=== PATIENT | female | born 1970 | race Caucasian/White ===

== ENCOUNTER 2016-09-30 21:06 | Emergency (ER) | payer OTHER ==
[~2016-09-30] VITALS: Ht 170.2 cm; Wt 85.3 kg
[2016-09-30 21:20] VITALS: BP 132/80; PULSE 58; RESP 16; TEMP 98.4; O2SAT 96
[2016-09-30] MEDS ORDERED: NACL 0.9% 1,000 ML IV ONE (21:37)
[2016-09-30] MEDS ORDERED: MORPHINE 4 MG/ML INJ. SYRINGE IVP ONE ×3 (21:45→23:45)
[2016-09-30] MEDS ORDERED: DIPHENHYDRAMINE INJ 50 MG/ML VIAL IVP ONE ×3 (21:45→23:45)
[2016-09-30] MEDS ORDERED: ONDANSETRON HCL 4 MG/2 ML VIAL IVP ONE (21:45)
[2016-09-30 21:57] LABS: BASOPHILS % (AUTO) 0.4 % (0.0-2.0); EOSINOPHILS # (AUTO) 0.1 K/uL (0.0-0.4); EOSINOPHILS % (AUTO) 1.4 % (0.0-4.0); HEMOGLOBIN 12.6 g/dL (12.0-16.0); LYMPHOCYTES # (AUTO) 2.8 K/uL (1.0-5.5); LYMPHOCYTES % (AUTO) 35.4 % (20.5-51.5); MEAN CORPUSCULAR HEMOGLOBIN 31 pg (27-31); MEAN CORPUSCULAR HGB CONC 34 % (32-36); MEAN CORPUSCULAR VOLUME 90 fL (79.0-98.0); MONOCYTES # (AUTO) 0.3 K/uL (0.0-1.0); MONOCYTES % (AUTO) 4.3 % (1.7-9.3); NEUTROPHILS # (AUTO) 4.7 K/uL (1.8-7.7); NEUTROPHILS % (AUTO) 58.5 % (40.0-70.0); PLATELET COUNT (AUTO) 315 K/uL (130-430); RED BLOOD CELL COUNT(AUTO) 4.12 MIL/uL (4.2-6.2); RED CELL DISTRIBUTION WIDTH 13.9 % (9.0-15.0); WHITE BLOOD COUNT (AUTO) 7.9 K/uL (4.8-10.8)
[2016-09-30 22:14] LABS: PROTHROMBIN TIME 11.2 SECS (9.5-12.5)
[2016-09-30 22:25] LABS: CREATININE 0.9 mg/dL (0.55-1.30); POTASSIUM 3.6 mmol/L (3.5-5.1)
[2016-09-30 22:29] LABS: ALBUMIN 3.7 g/dL (3.4-4.8); TOTAL BILIRUBIN 0.6 mg/dL (0.0-1.0); TOTAL PROTEIN, SERUM 8.2 g/dL (6.4-8.3)
[2016-10-01 00:43] LABS: BILIRUBIN,URINE NEGATIVE (NEGATIVE); BLOOD, URINE NEGATIVE (NEGATIVE); CLARITY/URINE CLEAR (CLEAR); COLOR,URINE YELLOW (YELLOW); GLUCOSE,URINE NEGATIVE (NEGATIVE); KETONES,URINE NEGATIVE (NEGATIVE); LEUKOCYTE ESTERASE ,URINE NEGATIVE (NEGATIVE); NITRITE, URINE NEGATIVE (NEGATIVE); PH,URINE 5.5 (5.0-8.0); PROTEIN URINE NEGATIVE (NEGATIVE); UROBILINOGEN,URINE 0.2 (0.2-1.0)
[2016-10-01 01:09] VITALS: BP 131/86; PULSE 65; RESP 14; TEMP 97.6; O2SAT 97
== END 2016-10-01 01:09 | disposition short-term general hospital (02) ==
LOC: SED 21:06
DX: K85.90 Acute pancreatitis without necrosis or infection, unspecified (principal); Z87.19 Personal history of other diseases of the digestive system
CPT/HCPCS: 36415; 80053; 81003; 83690; 85025; 85610; 85730; 96361; 96374; 96375; 96376; 99285; J1200; J2270; J2405; J7030

== ENCOUNTER 2017-05-08 15:51 | Emergency (ER) | payer OTHER ==
[~2017-05-08] VITALS: Ht 170.2 cm; Wt 85.7 kg
[2017-05-08 16:02] VITALS: BP_SYST 117
[2017-05-08] MEDS ORDERED: ONDANSETRON HCL 4 MG/2 ML VIAL IVP ONE ×2 (16:45→18:45)
[2017-05-08] MEDS ORDERED: NACL 0.9% 1,000 ML IV ONE (16:45)
[2017-05-08] MEDS ORDERED: HYDROmorphone 1 MG INJ. 1 MG/ML AMPUL IVP ONE (16:45)
[2017-05-08 17:01] LABS: BILIRUBIN,URINE NEGATIVE (NEGATIVE); BLOOD, URINE TRACE (NEGATIVE); CLARITY/URINE SL HAZY (CLEAR); COLOR,URINE YELLOW (YELLOW); GLUCOSE,URINE NEGATIVE (NEGATIVE); KETONES,URINE NEGATIVE (NEGATIVE); LEUKOCYTE ESTERASE ,URINE NEGATIVE (NEGATIVE); NITRITE, URINE NEGATIVE (NEGATIVE); PROTEIN URINE NEGATIVE (NEGATIVE); UROBILINOGEN,URINE 0.2 (0.2-1.0)
[2017-05-08 17:08] LABS: BASOPHILS # (AUTO) 0.1 K/uL (0.0-0.2); BASOPHILS % (AUTO) 1.2 % (0.0-2.0); EOSINOPHILS % (AUTO) 0.3 % (0.0-4.0); HEMATOCRIT 39.1 % (36-48); HEMOGLOBIN 13.1 g/dL (12.0-16.0); LYMPHOCYTES # (AUTO) 1.7 K/uL (1.0-5.5); LYMPHOCYTES % (AUTO) 24.9 % (20.5-51.5); MEAN CORPUSCULAR HEMOGLOBIN 32 pg (27-31); MEAN CORPUSCULAR HGB CONC 33 % (32-36); MEAN CORPUSCULAR VOLUME 94 fL (79.0-98.0); MONOCYTES # (AUTO) 0.3 K/uL (0.0-1.0); MONOCYTES % (AUTO) 4.7 % (1.7-9.3); NEUTROPHILS # (AUTO) 4.8 K/uL (1.8-7.7); NEUTROPHILS % (AUTO) 68.9 % (40.0-70.0); PLATELET COUNT (AUTO) 323 K/uL (130-430); RED BLOOD CELL COUNT(AUTO) 4.14 MIL/uL (4.2-6.2); RED CELL DISTRIBUTION WIDTH 11.8 % (9.0-15.0); WHITE BLOOD COUNT (AUTO) 6.9 K/uL (4.8-10.8)
[2017-05-08 17:13] LABS: BACTERIA,URINE FEW /HPF (None Seen); MUCUS,URINE 3+ /LPF (None Seen); RBC,URINE 0-3 /HPF (0-3); WBC,URINE 0-3 /HPF (0-3)
[2017-05-08 17:26] LABS: CALCIUM 8.8 mg/dL (8.4-11.0); CREATININE 0.64 mg/dL (0.55-1.30); POTASSIUM 3.6 mmol/L (3.5-5.1)
[2017-05-08 17:30] LABS: ALBUMIN 3.5 g/dL (3.4-4.8); TOTAL BILIRUBIN 0.7 mg/dL (0.0-1.0)
[2017-05-08 19:15] VITALS: BP_SYST 117
== END 2017-05-08 19:15 | disposition home or self-care (01) ==
LOC: SED 15:51
DX: N20.0 Calculus of kidney (principal); R10.13 Epigastric pain; F41.9 Anxiety disorder, unspecified; Z90.89 Acquired absence of other organs; Z90.710 Acquired absence of both cervix and uterus
CPT/HCPCS: 36415; 74176; 80053; 81000; 81025; 82150; 83615; 83690; 85025; 96374; 96375; 99285; J1170; J2405; J7030

== ENCOUNTER 2018-01-30 16:40 | Emergency (ER) | payer OTHER ==
[~2018-01-30] VITALS: Ht 170.2 cm; Wt 86.2 kg
[2018-01-30 16:55] VITALS: BP_SYST 120
[2018-01-30] MEDS ORDERED: MAG-AL HYDROX/SIMETH 30 ML UDC PO ONE (17:45)
[2018-01-30] MEDS ORDERED: LIDOCAINE VISCOUS 2%, 15 ML UDC MM ONE (17:45)
[2018-01-30] MEDS ORDERED: ONDANSETRON HCL 4 MG/2 ML VIAL IM ONE (17:45)
[2018-01-30] MEDS ORDERED: BELLADONNA ALKALOIDS/PHENOBARB 5 ML UDC PO ONE (17:45)
[2018-01-30 18:53] VITALS: BP_SYST 118
== END 2018-01-30 18:53 | disposition home or self-care (01) ==
LOC: SED 16:40
DX: K29.70 Gastritis, unspecified, without bleeding (principal); R42 Dizziness and giddiness; Z90.49 Acquired absence of other specified parts of digestive tract
CPT/HCPCS: 96372; 99284; J2001; J2405

== ENCOUNTER 2020-10-20 16:25 | Emergency (ER) | payer OTHER ==
[~2020-10-20] VITALS: Ht 162.6 cm; Wt 59.0 kg
[2020-10-20 16:25] VITALS: BP_SYST 127
[2020-10-20] MEDS ORDERED: LORazepam 1 MG TABLET PO ONE (16:45)
[2020-10-20] MEDS ORDERED: ACETAMINOPHEN 325 MG TABLET PO ONE (17:00)
[2020-10-20 18:11] VITALS: BP_SYST 127
== END 2020-10-20 18:07 | disposition home or self-care (01) ==
LOC: SED 16:25
DX: F23 Brief psychotic disorder (principal); F31.9 Bipolar disorder, unspecified; F13.20 Sedative, hypnotic or anxiolytic dependence, uncomplicated; Z90.49 Acquired absence of other specified parts of digestive tract; Z90.710 Acquired absence of both cervix and uterus; V49.9XXA Car occupant (driver) (passenger) injured in unspecified traffic accident, initial encounter; Y93.89 Activity, other specified; Y92.89 Other specified places as the place of occurrence of the external cause; Y99.8 Other external cause status
CPT/HCPCS: 99283

== ENCOUNTER 2022-10-11 11:10 | Emergency (ER) | payer OTHER ==
[~2022-10-11] VITALS: Ht 170.2 cm; Wt 68.0 kg
[2022-10-11 11:18] VITALS: BP_SYST 107
--- NOTE | 2022-10-11 11:43 | NUR ---
PT BIB SELF FROM HOME AWAKE AND ALERT. NO SOB OR DISTRESS. PT C/O COUGH, AND TIGHTNESS IN CHEST [place] 7 DAYS. PT STATED TODAY SHE FELT SOB. PT SATING AT 96% RA. PT HAS HX OF ASTHMA. PT STATES PAIN 4/10.
--- NOTE | 2022-10-11 11:45 | NUR ---
MD DR RUFFIN AT BEDSIDE
[2022-10-11] MEDS ORDERED: D-ME118S48 PO ×3 (12:52→13:14)
--- NOTE | 2022-10-11 16:00 | NUR ---
Patient given written and verbal discharge instructions and verbalizes understanding. ER MD discussed with patient the results and treatment provided. Patient in stable condition. ID arm band removed. Rx of Brofed given. Patient educated on pain management and to follow up with PMD. Opportunity for questions provided and answered. Medication side effect fact sheet provided.
[2022-10-11 17:32] VITALS: BP_SYST 107
== END 2022-10-11 16:00 | disposition home or self-care (01) ==
LOC: SED 11:10
DX: J06.9 Acute upper respiratory infection, unspecified (principal); R05.9 Cough, unspecified; R09.81 Nasal congestion; R06.02 Shortness of breath; Z79.899 Other long term (current) drug therapy; Z20.822 Contact with and (suspected) exposure to COVID-19
CPT/HCPCS: 36415; 71045; 99284

== ENCOUNTER 2023-05-01 20:38 | Emergency (ER) | payer OTHER ==
[~2023-05-01] VITALS: Ht 170.2 cm; Wt 74.8 kg
[~2023-05-01 20:38] MED LIST: BROM118S61 PO
[2023-05-01 20:50] VITALS: BP_SYST 107; PULSE 58; RESP 17; TEMP 98.1; O2SAT 98
[2023-05-01] MEDS ORDERED: DIPH28.34 TP (21:27)
[2023-05-01] MEDS ORDERED: HYDR-4175 TP (21:27)
[2023-05-01 21:41] VITALS: BP_SYST 109; PULSE 56; RESP 17; TEMP 98.1; O2SAT 98
== END 2023-05-01 21:41 | disposition home or self-care (01) ==
LOC: SED 20:38
DX: S60.562A Insect bite (nonvenomous) of left hand, initial encounter (principal); Z79.899 Other long term (current) drug therapy; W57.XXXA Bitten or stung by nonvenomous insect and other nonvenomous arthropods, initial encounter; Y93.89 Activity, other specified; Y92.89 Other specified places as the place of occurrence of the external cause; Y99.8 Other external cause status
CPT/HCPCS: 99282